=== PATIENT | female | born 1965 | race Caucasian/White ===

== ENCOUNTER 2020-03-04 08:34 | Day surgery (SDC) | payer OTHER, SELFPAY ==
[~2020-03-04] VITALS: Ht 167.6 cm; Wt 63.5 kg
[2020-03-04] MEDS ORDERED: MIDAZOLAM 2 MG/2 ML VIAL ONE (09:54)
[2020-03-04] MEDS ORDERED: fentaNYL citrate 0.05 MG/ML VIAL ONE (09:54)
[2020-03-04] MEDS ORDERED: LIDOCAINE 2% 100 MG/5 ML UJET TP ONE ×2 (09:55→15:40)
[2020-03-04] MEDS ORDERED: fentaNYL citrate 0.05 MG/ML VIAL IVP ONE (15:40)
[2020-03-04] MEDS ORDERED: MIDAZOLAM 2 MG/2 ML VIAL IVP ONE (15:40)
== END 2020-03-04 11:20 | disposition home or self-care (01) ==
LOC: MDS 08:34 → MFCC 08:34 → MDS 11:20
PROVIDERS: ATTEND Internal Medicine Gastroenterology
DX: K62.5 Hemorrhage of anus and rectum (principal); K63.5 Polyp of colon; K62.1 Rectal polyp; Z87.891 Personal history of nicotine dependence; E03.9 Hypothyroidism, unspecified; Z20.828 Contact with and (suspected) exposure to other viral communicable diseases
CPT/HCPCS: 45380; 45385; 88305; J2250; J3010; U0003

== ENCOUNTER 2023-10-11 07:21 | Day surgery (SDC) | payer OTHER ==
[~2023-10-11] VITALS: Ht 175.3 cm; Wt 117.9 kg
[2023-10-11] MEDS ORDERED: fentaNYL citrate 0.05 MG/ML VIAL ONE (08:48)
[2023-10-11] MEDS: fentaNYL citrate 0.05 MG/ML VIAL IVP ONE (09:13)
[2023-10-11] MEDS: LIDOCAINE 2% 100 MG/5 ML UJET TP ONE (09:24)
== END 2023-10-11 10:10 | disposition home or self-care (01) ==
LOC: MDS 07:21 → MMU 07:24 → MDS 10:10
PROVIDERS: ATTEND Internal Medicine Gastroenterology
DX: Z12.11 Encounter for screening for malignant neoplasm of colon (principal); K63.5 Polyp of colon; K57.30 Diverticulosis of large intestine without perforation or abscess without bleeding; Z86.010 Personal history of colon polyps; I10 Essential (primary) hypertension; E07.9 Disorder of thyroid, unspecified; Z98.891 History of uterine scar from previous surgery; Z98.890 Other specified postprocedural states
CPT/HCPCS: 45385; J3010